=== PATIENT | female | born 1995 | race Caucasian/White ===

== ENCOUNTER → 2021-03-24 | Outpatient (CLI) | payer BC | END | disposition home or self-care (01) | LOC: LABWHC1 08:39 | DX: Z53.9 Procedure and treatment not carried out, unspecified reason (principal) ==

== ENCOUNTER → 2021-03-25 | Outpatient (CLI) | payer BC ==
[2021-03-25 12:28] LABS: % Iron Saturation 13.93 (12.00-45.00); African American GFR (CKD) 167.8 (60.0-200.0); Albumin 3.8 g/dL (3.80-4.90); Albumin/Globulin Ratio 1.36 (1.60-3.17); Anion Gap 7.6 mmol/L (4.00-12.00); BUN/Creat Ratio 37.5 Ratio (12.00-20.00); Carbon Dioxide 27.4 mmol/L (21.6-31.8); Globulin 2.8 g/dL (1.6-3.3); Non-African American GFR(CKD) 144.8 (60.0-200.0); Potassium 4.1 mmol/L (3.5-5.5); Total Bilirubin 0.3 mg/dL (0.2-1.2); Total Protein 6.6 g/dL (6.2-8.2)
[2021-03-27 07:03] LABS: Vit B1(Thiamine) 92 ug/L (38-122)
== END | disposition home or self-care (01) ==
LOC: LABWHC1 07:35
PROVIDERS: ATTEND Family Medicine
DX: D64.9 Anemia, unspecified (principal); E46 Unspecified protein-calorie malnutrition; K59.00 Constipation, unspecified; F84.0 Autistic disorder; N91.1 Secondary amenorrhea; R62.7 Adult failure to thrive; R14.0 Abdominal distension (gaseous); Z99.3 Dependence on wheelchair
CPT/HCPCS: 36415; 80053; 82306; 82607; 82747; 83036; 83540; 83550; 83735; 84207; 84425; 84630

== ENCOUNTER 2021-10-18 14:53 | Emergency (ER) | payer BC, OTHER ==
[2021-10-18 15:39] VITALS: BP 85/56; PULSE 63; RESP 20; TEMP 97.5
--- NOTE | 2021-10-18 16:40 | ED ---
Recheck HPI - General Chief Complaint: Recheck/Abnormal Lab/Rx Stated Complaint: Pulled out peg tube Time Seen by Provider: 10/18/21 16:00 Source: patient Mode of arrival: ambulatory Limitations: no limitations - History of Present Illness Initial Comments: 25 year-old female patient presents for replacement of her PEG tube. She has history of developmental delay and autism. Parents state that the tube has been out for about 3 hours. They state that she did have an episode of vomiting which is not unusual for her. They are unsure how the tube came out but believe the balloon is deflated. This particular tube has been in place for the last 6-7 months. BP lower in triage, parents state this is normal for her. They deny any fevers or evidence of pain. Patient is non-verbal and does not contribute to history. - Related Data Home Medications Medication Instructions Recorded Confirmed Ascorbic Acid [Vitamin C] 500 mg PO TID 01/27/16 01/27/16 Ibuprofen [Motrin] 200 mg PO Q6HR PRN 01/27/16 01/27/16 Liothyronine/L-Thyroxine 1 cap PO DAILY 01/27/16 01/27/16 18mcg/76mcg Previous Rx's Medication Instructions Recorded Azithromycin [Zithromax] 500 mg PO DAILY #7 tab 01/27/16 Allergies Allergy/AdvReac Type Severity Reaction Status Date / Time No Known Allergies Allergy Verified 10/18/21 15:40 Review of Systems ROS Statement: Those systems with pertinent positive or pertinent negative responses have been documented in the HPI. ROS Other: All systems not noted in ROS Statement are negative. Past Medical History Past Medical History: Seizure Disorder, Thyroid Disorder Additional Past Medical History / Comment(s): autism, wheelchair History of Any Multi-Drug Resistant Organisms: None Reported Past Surgical History: No Surgical Hx Reported Past Psychological History: No Psychological Hx Reported Smoking Status: Never smoker Past Alcohol Use History: None Reported Past Drug Use History: None Reported General Exam Limitations: no limitations General appearance: alert, in no apparent distress Respiratory exam: Present: normal lung sounds bilaterally. Absent: respiratory distress, wheezes, rales, rhonchi, stridor Cardiovascular Exam: Present: regular rate, normal rhythm, normal heart sounds. Absent: systolic murmur, diastolic murmur, rubs, gallop, clicks GI/Abdominal exam: Present: soft, normal bowel sounds, other (mid abdominal PEG site, no bleeding, mild yellow drainage. No cutaneous erythema noted.). Absent: distended, tenderness, guarding, rebound, rigid Neurological exam: Present: alert, oriented X3, CN II-XII intact Psychiatric exam: Present: normal affect, normal mood Skin exam: Present: warm, dry, intact, normal color. Absent: rash Course Vital Signs 10/18/21 15:34 Temperature 97.5 F L Pulse Rate 63 Respiratory 20 Rate Blood Pressure 85/56 O2 Sat by Pulse 98 Oximetry Medical Decision Making - Medical Decision Making 25 year-old female patient presents for replacement of her PEG tube. Physical exam revealed open gastrostomy, mild yellow drainage. I was able to replace a 18Fr tube. Mild bleeding noted. Xray of the abdomen was obtained and showed appropriate contrast disbursement. She will be discharged to follow up with her primary care physician and GI doctor. Return parameters are discussed in detail. They verbalize understanding and agrees with this plan. My attending is Dr. Woods. - Radiology Data Radiology results: image reviewed KUB was obtained, contrast shows appropriate disbursement. Disposition Clinical Impression: PEG tube malfunction Disposition: HOME SELF-CARE Condition: Good Instructions (If sedation given, give patient instructions): Percutaneous Endoscopic Gastrostomy (ED) Additional Instructions: Follow up with the GI specialist as needed. Follow up with primary care physician for recheck in 1-2 days. Return for any new, worsening, or concerning symptoms. Is patient prescribed a controlled substance at d/c from ED?: No Referrals: John Munoz MD [Primary Care Provider] - 1-2 days Time of Disposition: 17:06
--- NOTE | 2021-10-18 17:38 | XR ---
EXAMINATION TYPE: XR KUB DATE OF EXAM: 10/18/2021 COMPARISON: NONE HISTORY: PEG tube placement TECHNIQUE: Single view FINDINGS: 25 mL of Isovue was injected into the gastrostomy tube. There is contrast opacification of the stomach and the proximal duodenum. There is no contrast extravasation. Bowel gas pattern appears not acute. IMPRESSION: Gastrostomy tube is in good position.
== END 2021-10-18 17:50 | disposition home or self-care (01) ==
LOC: EC 14:53
DX: K94.23 Gastrostomy malfunction (principal); E07.9 Disorder of thyroid, unspecified; Z79.890 Hormone replacement therapy
CPT/HCPCS: 74018; 99283; 43762; Q9967

== ENCOUNTER → 2022-08-18 | Outpatient (CLI) | payer OTHER ==
[2022-08-18 11:20] LABS: Basophils % (A) 1 %; Eosinophils # (A) 0.2 k/uL (0-0.7); Eosinophils % (A) 2 %; HCT 41.1 % (34.0-46.0); HGB 14.1 gm/dL (11.4-16.0); Lymphocytes # (A) 4.1 k/uL (1.0-4.8); Lymphocytes % (A) 43 %; MCH 31.9 pg (25.0-35.0); MCHC 34.3 g/dL (31.0-37.0); Mean Platelet Volume 8.4; Monocytes # (A) 0.4 k/uL (0-1.0); Monocytes % (A) 4 %; Neutrophils # (A) 4.8 k/uL (1.3-7.7); Neutrophils % (A) 50 %; Platelet Count 296 k/uL (150-450); RBC 4.41 m/uL (3.80-5.40); RDW 12.2 % (11.5-15.5); WBC 9.6 k/uL (3.8-10.6)
[2022-08-18 17:24] LABS: T4, Free (Free Thyroxine) 1.62 ng/dL (0.800-1.800)
[2022-08-18 18:23] LABS: African American GFR (CKD) 154.8 (60.0-200.0); Albumin 4.3 g/dL (3.8-4.9); Albumin/Globulin Ratio 1.16 (1.60-3.17); Anion Gap 15.4 mmol/L (10.00-18.00); BUN/Creat Ratio 22.6 Ratio (12.00-20.00); Blood Urea Nitrogen 11.3 mg/dL (9.0-27.0); Calcium 9.3 mg/dL (8.7-10.3); Carbon Dioxide 18.6 mmol/L (20.0-27.5); Globulin 3.7 g/dL (1.6-3.3); Non-African American GFR(CKD) 133.6 (60.0-200.0); Potassium 5.4 mmol/L (3.5-5.5); Total Bilirubin 0.3 mg/dL (0.30-1.20)
[2022-08-19 06:45] LABS: Levetiracetam (Keppra) 10.5 ug/mL (3.0-60.0)
[2022-08-19 11:33] LABS: Progesterone 0.2 ng/mL
[2022-08-19 12:06] LABS: Estradiol 48.1 pg/mL; Testosterone 45.5 ng/mL (9.01-47.94)
== END | disposition home or self-care (01) ==
LOC: LABWHC1 09:35
PROVIDERS: ATTEND Family Medicine
DX: Z51.81 Encounter for therapeutic drug level monitoring (principal); E83.59 Other disorders of calcium metabolism; M81.0 Age-related osteoporosis without current pathological fracture; D64.9 Anemia, unspecified; K76.9 Liver disease, unspecified; I10 Essential (primary) hypertension; E34.9 Endocrine disorder, unspecified; E03.8 Other specified hypothyroidism
CPT/HCPCS: 36415; 80053; 80177; 82523; 82670; 82728; 84144; 84403; 84439; 84443; 84480; 84481; 85025

== ENCOUNTER 2022-10-23 15:36 | Emergency (ER) | payer OTHER ==
[2022-10-23 15:45] VITALS: BP 106/63; PULSE 96; RESP 14; TEMP 97.3
--- NOTE | 2022-10-23 16:12 | ED ---
Recheck HPI - General Chief Complaint: Recheck/Abnormal Lab/Rx Stated Complaint: Feeding tube displacement Time Seen by Provider: 10/23/22 16:05 Source: patient, RN notes reviewed Mode of arrival: ambulatory - History of Present Illness Initial Comments: This is a 26-year-old female bronchograms found by her family after she pulled out her PEG tube. Other complaints. No fever or chills. No evidence respiratory distress. No evidence of abdominal pain. No changes in bowel movements or urination. - Related Data Home Medications Medication Instructions Recorded Confirmed Ascorbic Acid [Vitamin C] 500 mg PO TID 01/27/16 01/27/16 Ibuprofen [Motrin] 200 mg PO Q6HR PRN 01/27/16 01/27/16 Liothyronine/L-Thyroxine 1 cap PO DAILY 01/27/16 01/27/16 18mcg/76mcg Previous Rx's Medication Instructions Recorded Azithromycin [Zithromax] 500 mg PO DAILY #7 tab 01/27/16 Allergies Allergy/AdvReac Type Severity Reaction Status Date / Time No Known Allergies Allergy Verified 10/23/22 15:45 Review of Systems ROS Statement: Those systems with pertinent positive or pertinent negative responses have been documented in the HPI. ROS Other: All systems not noted in ROS Statement are negative. Past Medical History Past Medical History: Seizure Disorder, Thyroid Disorder Additional Past Medical History / Comment(s): autism, wheelchair, nonverbal History of Any Multi-Drug Resistant Organisms: None Reported Past Surgical History: No Surgical Hx Reported Past Psychological History: No Psychological Hx Reported Smoking Status: Never smoker Past Alcohol Use History: None Reported Past Drug Use History: None Reported General Exam - General Exam Comments Initial Comments: Does not appear to be ill or toxic. Vital signs stable, patient afebrile General appearance: alert, in no apparent distress Head exam: Present: atraumatic, normocephalic, normal inspection Eye exam: Present: normal appearance, PERRL, EOMI. Absent: scleral icterus, conjunctival injection, periorbital swelling ENT exam: Present: normal exam, mucous membranes moist Neck exam: Present: normal inspection. Absent: tenderness, meningismus, lymphadenopathy Respiratory exam: Present: normal lung sounds bilaterally. Absent: respiratory distress, wheezes, rales, rhonchi, stridor Cardiovascular Exam: Present: regular rate, normal rhythm, normal heart sounds. Absent: systolic murmur, diastolic murmur, rubs, gallop, clicks GI/Abdominal exam: Present: soft, normal bowel sounds. Absent: distended, tenderness, guarding, rebound, rigid Extremities exam: Present: normal inspection, full ROM, normal capillary refill. Absent: tenderness, pedal edema, joint swelling, calf tenderness Back exam: Present: normal inspection Neurological exam: Present: alert, CN II-XII intact Psychiatric exam: Present: normal affect, normal mood Skin exam: Present: warm, dry, intact, normal color. Absent: rash Course Vital Signs 10/23/22 15:40 Temperature 97.3 F L Pulse Rate 96 Respiratory 14 Rate Blood Pressure 106/63 O2 Sat by Pulse 95 Oximetry Medical Decision Making - Medical Decision Making Was pt. sent in by a medical professional or institution? @ -No Did you speak to anyone other than the patient for history? @ -Mother and father Did you review nursing and triage notes? @ -Concur Were old charts reviewed? @ -no Differential Diagnosis? @ -Patient presents only for PEG tube placement, patient nonverbal, brought in by her parents. This has happened previously. This is a long-standing feeding tube. EKG interpreted by me (3pts min.)? @ -[none] X-rays interpreted by me (1pt min.)? @ -X-ray shows adequate placement of the PEG tube. Contrast within the stomach CT interpreted by me (1pt min.)? @ -[none] U/S interpreted by me (1pt. min.)? @ -[none] What testing was considered but not performed? (CT, X-rays, U/S, labs)? Why? @Not applicable What meds were considered but not given? Why? @ -[none] Did you discuss the management of the patient with other professionals? @ -ED attending physician Did you reconcile home meds? @ -no Was smoking cessation discussed for >3mins.? @ -no Was critical care preformed (if so, how long)? @ -[none] Were there social determinants of health that impacted care today? How? (Homelessness, low income, unemployed, alcoholism, drug addiction, transportation, low edu. Level, literacy, decrease access to med. care, longterm, rehab)? @ -Patient nonverbal and wheelchair bound. Was there de-escalation of care discussed even if they declined? (Discuss DNR or withdrawal of care, Hospice)? @ -[Discuss DNR or withdrawal of care, Hospice?] What co-morbidities impacted this encounter? (DM, HTN, Smoking, COPD, CAD, Cancer, CVA, Hep., AIDS, mental health diagnosis, sleep apnea, morbid obesity)? @ -Long-standing PEG tube Was patient admitted / discharged? @ -Patient was discharged. PEG tube was replaced by me without difficulty. 18- Finnish. Placement confirmed by KUB x-ray with contrast within the stomach. Follow-up with your child's physician as directed. Bring your child back to the emergency department immediately if any symptoms worsen or new symptoms develop. Return if any other problems arise. Undiagnosed new problem with uncertain prognosis? @ -[none] Drug Therapy requiring intensive monitoring for toxicity (Heparin, Nitro, Insulin, Cardizem)? @ -[none] Were any procedures done? @ -PEG tube replaced by me. No difficulty. Confirmed placement. Patient tolerated well Diagnosis/symptom? @ -PEG tube problem with subsequent replacement Acute, or Chronic, or Acute on Chronic? @ -Acute Uncomplicated (without systemic symptoms) or Complicated (systemic symptoms)? @ -Uncomplicated Side effects of treatment? @ -[none] Exacerbation, Progression, or Severe Exacerbation] @ -Not applicable Poses a threat to life or bodily function? @ -[no] Disposition Clinical Impression: PEG tube malfunction, Encounter for removal of sutures Narrative: PEG tube displacement Disposition: HOME SELF-CARE Condition: Good Instructions (If sedation given, give patient instructions): How to Use and Care for Your PEG Tube (ED), PEG Tube Insertion (DC) Additional Instructions: Follow-up with your child's physician as directed. Bring your child back to the emergency department immediately if any symptoms worsen or new symptoms develop. Return if any other problems arise. Is patient prescribed a controlled substance at d/c from ED?: No Referrals: John Munoz MD [Primary Care Provider] - 1-2 days Time of Disposition: 17:36
--- NOTE | 2022-10-23 17:36 | XR ---
EXAMINATION TYPE: XR KUB DATE OF EXAM: 10/23/2022 COMPARISON: 10/18/2021 HISTORY: PEG tube placement TECHNIQUE: FINDINGS: 30 mL of contrast was injected into the gastrostomy tube. There is contrast opacification of the stom ach and the duodenal bulb to a small extent. No extravasation. IMPRESSION: Gastrostomy tube is in good position in the body of the stomach. No evidence of a leak.
== END 2022-10-23 17:57 | disposition home or self-care (01) ==
LOC: EEVIPCON 15:36 → EC 15:36
DX: Z48.02 Encounter for removal of sutures (principal); K94.23 Gastrostomy malfunction; G40.909 Epilepsy, unspecified, not intractable, without status epilepticus; E07.9 Disorder of thyroid, unspecified; Z79.890 Hormone replacement therapy
CPT/HCPCS: 74018; 99283

== ENCOUNTER → 2023-03-22 | Outpatient (CLI) | payer OTHER ==
[2023-03-22 10:16] LABS: Ionized Calcium 5.1 mg/dL (4.5-5.3)
[2023-03-22 10:38] LABS: ALT 23 U/L (4-34); AST 21 U/L (14-36); African American GFR (CKD) >90 (>60 ml/min/1.73 sqM); Albumin/Globulin Ratio 1.2; Alkaline Phosphatase 97 U/L (38-126); Anion Gap 11 mmol/L; Blood Urea Nitrogen 11 mg/dL (7-17); Calcium 8.7 mg/dL (8.4-10.2); Carbon Dioxide 24 mmol/L (22-30); Chloride 102 mmol/L (98-107); GGT 18 U/L (12-43); Globulin 3.4 g/dL; Glucose 89 mg/dL (74-99); Non-African American GFR(CKD) >90 (>60 ml/min/1.73 sqM); Potassium 4.3 mmol/L (3.5-5.1); Sodium 137 mmol/L (137-145); Total Bilirubin 0.4 mg/dL (0.2-1.3); Total Protein 7.4 g/dL (6.3-8.2)
[2023-03-22 10:48] LABS: T4, Free (Free Thyroxine) 1.45 ng/dL (0.78-2.19)
[2023-03-22 15:09] LABS: HCT 41.9 % (37.2-46.3); MCH 31.5 pg (27.0-32.0); MCHC 33.4 g/dL (32.0-37.0); MCV 94.4 fL (80.0-97.0); Mean Platelet Volume 10.3 fL (9.5-12.2); NRBC Per 100 WBC 0 /100 WBCS (0.0-0.0); Platelet Count 241 X 10*3/uL (140-440); RBC 4.44 X 10*6/uL (4.10-5.20); RDW 11.7 % (11.5-14.5); WBC 7.45 X 10*3/uL (4.50-10.00)
[2023-03-22 15:39] LABS: Homocysteine 5.79 umol/L (4.00-14.00); Progesterone 0.3 ng/mL
[2023-03-22 15:46] LABS: Estradiol 65.2 pg/mL
[2023-03-22 15:48] LABS: % Iron Saturation 30.82 (12.00-45.00); C Reactive Protein, High Sens 0.323 mg/L (0.000-3.000); Chol/HDL Ratio 3.26 Ratio; Ferritin 89.8 ng/mL (10.0-291.0); Iron 104 ug/dL (50-170); Total Iron Binding Capacity 337 ug/dL (228-460)
[2023-03-22 15:55] LABS: Erythrocyte Sedimentation Rate 38 mm/Hr (0-20)
[2023-03-22 19:59] LABS: Insulin Level 8.9 mIU/mL (3.0-25.0)
== END | disposition home or self-care (01) ==
LOC: LABWHC1 08:52
PROVIDERS: ATTEND Family Medicine
DX: E53.9 Vitamin B deficiency, unspecified (principal); E23.7 Disorder of pituitary gland, unspecified; E55.9 Vitamin D deficiency, unspecified; D64.9 Anemia, unspecified; M06.4 Inflammatory polyarthropathy; E78.5 Hyperlipidemia, unspecified; E03.9 Hypothyroidism, unspecified; E72.10 Disorders of sulfur-bearing amino-acid metabolism, unspecified; E34.9 Endocrine disorder, unspecified; R11.15 Cyclical vomiting syndrome unrelated to migraine
CPT/HCPCS: 36415; 80053; 80061; 82306; 82330; 82533; 82607; 82627; 82670; 82728; 82977; 83036; 83090; 83525; 83540; 83550; 84144; 84402; 84403; 84439; 84443; 84481; 85027; 85652; 86141; 86800

== ENCOUNTER → 2023-09-29 | Outpatient (CLI) | payer OTHER ==
[2023-09-29 09:15] LABS: Ionized Calcium 4.6 mg/dL (4.5-5.3)
[2023-09-29 09:38] LABS: ALT 22 U/L (4-34); AST 24 U/L (14-36); African American GFR (CKD) >90 (>60 ml/min/1.73 sqM); Albumin 4.1 g/dL (3.5-5.0); Albumin/Globulin Ratio 1.2; Alkaline Phosphatase 79 U/L (38-126); Anion Gap 13 mmol/L; Blood Urea Nitrogen 12 mg/dL (7-17); Calcium 9.1 mg/dL (8.4-10.2); Carbon Dioxide 22 mmol/L (22-30); Chloride 103 mmol/L (98-107); Globulin 3.5 g/dL; Glucose 91 mg/dL (74-99); Non-African American GFR(CKD) >90 (>60 ml/min/1.73 sqM); Potassium 4.5 mmol/L (3.5-5.1); Sodium 138 mmol/L (137-145); Total Bilirubin 0.4 mg/dL (0.2-1.3); Total Protein 7.6 g/dL (6.3-8.2)
== END | disposition home or self-care (01) ==
LOC: LABWHC1 07:40
PROVIDERS: ATTEND Family Medicine
DX: I10 Essential (primary) hypertension (principal); G40.309 Generalized idiopathic epilepsy and epileptic syndromes, not intractable, without status epilepticus; E03.9 Hypothyroidism, unspecified; M81.0 Age-related osteoporosis without current pathological fracture; R62.7 Adult failure to thrive
CPT/HCPCS: 36415; 80053; 80177; 82330; 83970

== ENCOUNTER 2024-02-03 15:25 | Emergency (ER) | payer OTHER ==
[2024-02-03 15:35] VITALS: PULSE 96; TEMP 97.9
--- NOTE | 2024-02-03 16:40 | XR ---
EXAMINATION TYPE: XR abdomen 1V DATE OF EXAM: 02/03/2024 COMPARISON: NONE HISTORY: PEG tube placement. with contrast TECHNIQUE: Single supine KUB image of the abdomen is obtained FINDINGS: peg tube placement Isovue 300 used IMPRESSION: 1. Contrast is seen within the stomach without evidence for leak. PEG tube is appropriately placed.
--- NOTE | 2024-02-03 16:45 | ED ---
General Adult HPI - General Chief complaint: Recheck/Abnormal Lab/Rx Stated complaint: Feeding tube issues Time Seen by Provider: 02/03/24 15:30 Source: patient, RN notes reviewed, old records reviewed Mode of arrival: wheelchair Limitations: no limitations - History of Present Illness Initial comments: Patient is a 28-year-old female presents emergency department for PEG tube malfunction. Patient had her PEG tube removed sometime this morning. Has had it chronically and. Uses an 18 Emirati tube. Lives with her parents who are primary caregivers. Patient is nonverbal and chronically in a wheelchair. Patient presents with parents for PEG tube replacement. - Related Data Home Medications Medication Instructions Recorded Confirmed Ascorbic Acid [Vitamin C] 500 mg PO TID 01/27/16 01/27/16 Ibuprofen [Motrin] 200 mg PO Q6HR PRN 01/27/16 01/27/16 Liothyronine/L-Thyroxine 1 cap PO DAILY 01/27/16 01/27/16 18mcg/76mcg Previous Rx's Medication Instructions Recorded Azithromycin [Zithromax] 500 mg PO DAILY #7 tab 01/27/16 Allergies Allergy/AdvReac Type Severity Reaction Status Date / Time No Known Allergies Allergy Verified 02/03/24 15:30 Review of Systems ROS Statement: Those systems with pertinent positive or pertinent negative responses have been documented in the HPI. ROS Other: All systems not noted in ROS Statement are negative. Past Medical History Past Medical History: Seizure Disorder, Thyroid Disorder Additional Past Medical History / Comment(s): autism, wheelchair, nonverbal History of Any Multi-Drug Resistant Organisms: None Reported Past Surgical History: No Surgical Hx Reported Past Psychological History: No Psychological Hx Reported Smoking Status: Never smoker Past Alcohol Use History: None Reported Past Drug Use History: None Reported General Exam - General Exam Comments Initial Comments: General: Appears in no acute distress. HEAD: Normal with no signs of head trauma. EYES: EOMI. ENT: Hearing grossly intact. RESPIRATORY: No respiratory distress. C/V: Regular rate and rhythm. ABD: Abdomen is nondistended. Nontender. PEG tube site appears unremarkable other than the fact that the PEG tube is not present. No evidence of infection or discharge. EXT: No obvious deformity. SKIN: No rashes or lesions observed on exposed skin. NEURO: Alert Limitations: no limitations Course Vital Signs 02/03/24 15:26 Temperature 97.9 F Pulse Rate 96 Respiratory 16 Rate Blood Pressure 102/71 O2 Sat by Pulse 96 Oximetry Medical Decision Making - Medical Decision Making Was pt. sent in by a medical professional or institution ([facility], CUSTOMER FIELD REPRESENTATIVE, urgent care, hospital, or snf...) When possible be specific @ -No Did you speak to anyone other than the patient for history (EMS, parent, family, police, friend...)? What history was obtained from this source @ -Patient's mother and father are the primary historians. Did you review nursing and triage notes (agree or disagree)? Why? @ -I reviewed and agree with nursing and triage notes Were old charts reviewed (outside hosp., previous admission, EMS record, old EKG, old radiological studies, urgent care reports/EKG's, snf records)? Report findings @ -Old charts reviewed. Previously had 18 Emirati PEG tube placed. Differential Diagnosis (chest pain, altered mental status, abdominal pain women, abdominal pain men, vaginal bleeding, weakness, fever, dyspnea, syncope, headache, dizziness, GI bleed, back pain, seizure, CVA, palpatations, mental health, musculoskeletal)? @ -PEG tube malfunction, PEG tube removal. This list is not all inclusive. EKG interpreted by me (3pts min.). @ -None done X-rays interpreted by me (1pt min.). @ -X-ray of the abdomen confirms PEG tube placement. CT interpreted by me (1pt min.). @ -None done U/S interpreted by me (1pt. min.). @ -None done What testing was considered but not performed or refused? (CT, X-rays, U/S, labs)? Why? @ -None What meds were considered but not given or refused? Why? @ -None Did you discuss the management of the patient with other professionals (professionals i.e. [facility], CUSTOMER FIELD REPRESENTATIVE, lab, RT, psych nurse, mental health social worker, laboratory sample carrier, teacher, parachute/combatant diver officer, director of casework services)? Give summary @ -No Was smoking cessation discussed for >3mins.? @ -No Was critical care preformed (if so, how long)? @ -No Were there social determinants of health that impacted care today? How? (Homelessness, low income, unemployed, alcoholism, drug addiction, transportation, low edu. Level, literacy, decrease access to med. care, assisted, rehab)? @ -No Was there de-escalation of care discussed even if they declined (Discuss DNR or withdrawal of care, Hospice)? DNR status @ -No What co-morbidities impacted this encounter? (DM, HTN, Smoking, COPD, CAD, Cancer, CVA, ARF, Chemo, Hep., AIDS, mental health diagnosis, sleep apnea, morbid obesity)? @ -None Was patient admitted / discharged? Hospital course, mention meds given and route, prescriptions, significant lab abnormalities, going to OR and other pertinent info. @ -Patient presents for accidental PEG tube removal. Has chronic PEG tube in place. 18 Emirati PEG tube. Presents with parents for replacement. No other complaints. I successfully placed the patient's PEG tube, 18 Emirati. Was done in a sterile fashion, and patient tolerated the procedure well. Confirmatory x- ray confirms successful placement. Patient will be discharged home at this time. Vital signs within acceptable limits. Patient's parents are in agreement this plan. I instructed the patient to follow up with their PCP in the next 1-3 days. I explained that the patient should return to the emergency department if they experience any worsening symptoms. Strict return precautions were discussed with the patient. The patient expressed understanding of these instructions. I answered all questions that the patient had. The patient was discharged home in good condition with their prescriptions and follow up information. Undiagnosed new problem with uncertain prognosis? @ -No Drug Therapy requiring intensive monitoring for toxicity (Heparin, Nitro, Insulin, Cardizem)? @ -No Were any procedures done? @ -PEG tube placement Diagnosis/symptom? @ -PEG tube malfunction, replacement Acute, or Chronic, or Acute on Chronic? @ -Acute Uncomplicated (without systemic symptoms) or Complicated (systemic symptoms)? @ -Uncomplicated Side effects of treatment? @ -No Exacerbation, Progression, or Severe Exacerbation? @ -No Poses a threat to life or bodily function? How? (Chest pain, [place], CA, pneumonia, PE, COPD, DKA, ARF, appy, cholecystitis, CVA, Diverticulitis, Homicidal, Suicidal, threat to staff... and all critical care pts) @ -No Disposition Clinical Impression: PEG tube malfunction Disposition: HOME SELF-CARE Condition: Good Is patient prescribed a controlled substance at d/c from ED?: No Referrals: John Munoz MD [Primary Care Provider] - 1-2 days Time of Disposition: 16:45
[2024-02-03 17:27] VITALS: BP 118/75; RESP 18
== END 2024-02-03 17:02 | disposition home or self-care (01) ==
LOC: EC 15:25
DX: K94.23 Gastrostomy malfunction (principal)
CPT/HCPCS: 74018; 99283; 43762; Q9967

== ENCOUNTER 2025-05-13 01:09 | Emergency (ER) | payer OTHER ==
[2025-05-13 01:14] VITALS: TEMP 97.7
--- NOTE | 2025-05-13 02:42 | ED ---
General Adult HPI - General Chief complaint: Recheck/Abnormal Lab/Rx Stated complaint: peg tube issue Time Seen by Provider: 05/13/25 01:23 Source: family, RN notes reviewed Mode of arrival: wheelchair Limitations: physical limitation - History of Present Illness Initial comments: This is a 29-year-old female with history of autism, epilepsy, wheelchair-bound and nonverbal presenting with parents for PEG tube dysfunction occurring 1 hour ago. Parents state patient's 18 [place]odian PEG tube fell out without any other complication. Patient still requesting a PEG tube replacement today. Onset/Timin -: hour(s) Location: abdomen Radiation: non-radiation - Related Data Home Medications Medication Instructions Recorded Confirmed Ascorbic Acid [Vitamin C] 500 mg PO TID 01/27/16 01/27/16 Ibuprofen [Motrin] 200 mg PO Q6HR PRN 01/27/16 01/27/16 Liothyronine/L-Thyroxine 1 cap PO DAILY 01/27/16 01/27/16 18mcg/76mcg Previous Rx's Medication Instructions Recorded Azithromycin [Zithromax] 500 mg PO DAILY #7 tab 01/27/16 Allergies Allergy/AdvReac Type Severity Reaction Status Date / Time No Known Allergies Allergy Verified 05/13/25 01:14 Review of Systems ROS Statement: Those systems with pertinent positive or pertinent negative responses have been documented in the HPI. ROS Other: All systems not noted in ROS Statement are negative. Past Medical History Past Medical History: Seizure Disorder, Thyroid Disorder Additional Past Medical History / Comment(s): autism, wheelchair, nonverbal History of Any Multi-Drug Resistant Organisms: None Reported Past Surgical History: No Surgical Hx Reported Past Psychological History: No Psychological Hx Reported Smoking Status: Never smoker Past Alcohol Use History: None Reported Past Drug Use History: None Reported General Exam General appearance: alert, in no apparent distress Head exam: Present: atraumatic, normocephalic, normal inspection Eye exam: Present: normal appearance, PERRL, EOMI. Absent: scleral icterus, conjunctival injection, periorbital swelling ENT exam: Present: normal exam, mucous membranes moist Neck exam: Present: normal inspection. Absent: tenderness, meningismus, lymphadenopathy Respiratory exam: Present: normal lung sounds bilaterally. Absent: respiratory distress, wheezes, rales, rhonchi, stridor Cardiovascular Exam: Present: regular rate, normal rhythm, normal heart sounds. Absent: systolic murmur, diastolic murmur, rubs, gallop, clicks GI/Abdominal exam: Present: soft, normal bowel sounds, other (Ostomy site appears clean without surrounding erythema, discharge, tenderness.). Absent: distended, tenderness, guarding, rebound, rigid Extremities exam: Present: normal inspection, full ROM, normal capillary refill. Absent: tenderness, pedal edema, joint swelling, calf tenderness Back exam: Present: normal inspection Neurological exam: Present: alert, oriented X3, CN II-XII intact Psychiatric exam: Present: normal affect, normal mood Skin exam: Present: warm, dry, intact, normal color. Absent: rash Course Vital Signs 05/13/25 05/13/25 01:10 03:26 Temperature 97.7 F Pulse Rate 85 72 Respiratory 18 16 Rate Blood Pressure 89/65 91/60 O2 Sat by Pulse 95 98 Oximetry Procedures - Feeding Tube Replacement Reason for Replacement: fell out Initial Tube Inserted: greater than 2 weeks Type of Tube: gastrostomy Use of Tube: medications and feeding Insertion Site Prior to Procedure: clean Tube Used for Reinsertion: Bard [place]ian Tube Size (F): 16 Balloon Size (mls): 10 Verification of Placement: KUB Patient Tolerated Procedure: well, no complications Medical Decision Making - Medical Decision Making Was pt. sent in by a medical professional or institution ([facility], SOFTWARE SALES MANAGER, urgent care, hospital, or correction...) When possible be specific @ -No Did you speak to anyone other than the patient for history (EMS, parent, family, police, friend...)? What history was obtained from this source @ -Parents provided entirety of HPI Did you review nursing and triage notes (agree or disagree)? Why? @ -I reviewed and agree with nursing and triage notes Were old charts reviewed (outside hosp., previous admission, EMS record, old EKG, old radiological studies, urgent care reports/EKG's, correction records)? Report findings @ -No old charts were reviewed Differential Diagnosis (chest pain, altered mental status, abdominal pain women, abdominal pain men, vaginal bleeding, weakness, fever, dyspnea, syncope, headache, dizziness, GI bleed, back pain, seizure, CVA, palpatations, mental health, musculoskeletal)? @ -Differential Abdominal Pain Women: Appendicitis, Cholecystitis, diverticulosis, ischemic bowel, pancreatitis, hepatitis, UTI, gastroenteritis, AAA, incarcerated hernia, bowel obstruction, constipation, inflammatory bowel, hepatitis, peptic ulcer disease, splenic infarction, perforated viscus, vulvitis, ovarian torsion, PID, kidney stone, placenta abruption, this is not meant to be an all-inclusive list EKG interpreted by me (3pts min.). @ -Not done X-rays interpreted by me (1pt min.). @ -KUB Pegogram confirms tube in the stomach CT interpreted by me (1pt min.). @ -None done U/S interpreted by me (1pt. min.). @ -None done What testing was considered but not performed or refused? (CT, X-rays, U/S, labs)? Why? @ -None What meds were considered but not given or refused? Why? @ -None Did you discuss the management of the patient with other professionals (professionals i.e. , PA, SOFTWARE SALES MANAGER, lab, RT, psych nurse, case management social worker, sign erector and repairer, teacher, credit officer, caser in)? Give summary @ -No Was smoking cessation discussed for >3mins.? @ -No Was critical care preformed (if so, how long)? @ -No Were there social determinants of health that impacted care today? How? (Ho melessness, low income, unemployed, alcoholism, drug addiction, transportation, low edu. Level, literacy, decrease access to med. care, retirement, rehab)? @ -No Was there de-escalation of care discussed even if they declined (Discuss DNR or withdrawal of care, Hospice)? DNR status @ -No What co-morbidities impacted this encounter? (DM, HTN, Smoking, COPD, CAD, Cancer, CVA, ARF, Chemo, Hep., AIDS, mental health diagnosis, sleep apnea, morbid obesity)? @ -None Was patient admitted / discharged? Hospital course, mention meds given and route, prescriptions, significant lab abnormalities, going to OR and other pertinent info. @ -18 Cambodian PEG tube unavailable, the 16 [place]ian PEG tube placed without complication. KUB pegogram confirmed correct placement. Discussed patient with Dr. Bower. Undiagnosed new problem with uncertain prognosis? @ -No Drug Therapy requiring intensive monitoring for toxicity (Heparin, Nitro, Insulin, Cardizem)? @ -No Were any procedures done? @ -PEG tube placed without complication. See procedure note Diagnosis/symptom? @ -PEG tube replacement Acute, or Chronic, or Acute on Chronic? @ -Acute Uncomplicated (without systemic symptoms) or Complicated (systemic symptoms)? @ -Uncomplicated Side effects of treatment? @ -No Exacerbation, Progression, or Severe Exacerbation? @ -No Poses a threat to life or bodily function? How? (Chest pain, [place], [place], pneumonia, PE, COPD, DKA, ARF, appy, cholecystitis, CVA, Diverticulitis, Homicidal, Suicidal, threat to staff... and all critical care pts) @ -No Disposition Clinical Impression: PEG tube malfunction Disposition: HOME SELF-CARE Condition: Good Instructions (If sedation given, give patient instructions): How to Use and Care for Your PEG Tube (ED), PEG Tube Insertion (DC) Is patient prescribed a controlled substance at d/c from ED?: No Referrals: John Munoz MD [Primary Care Provider] - 1-2 days Time of Disposition: 02:42
[2025-05-13 03:28] VITALS: BP 91/60; PULSE 72; RESP 16
--- NOTE | 2025-05-13 04:58 | XR ---
EXAM: XR Abdomen, 1 View CLINICAL HISTORY: ITS.REASON XR Reason: pegogram TECHNIQUE: Frontal supine view of the abdomen/pelvis. COMPARISON: No relevant prior studies available. FINDINGS: Gastrointestinal tract: Unremarkable. No dilation. Bones/joints: Unremarkable. Tubes, lines and devices: Peg tube in the stomach. IMPRESSION: Peg tube in the stomach.
== END 2025-05-13 03:33 | disposition home or self-care (01) ==
LOC: EC 01:09
DX: K94.23 Gastrostomy malfunction (principal)
CPT/HCPCS: 43762; 74018; 99283